=== PATIENT | female | born 1945 | race Caucasian/White ===

== ENCOUNTER 2017-05-25 15:01 | Outpatient (CLI) | payer MEDICARE ==
--- NOTE | 2017-05-25 16:57 | MMO ---
BILATERAL DIGITAL SCREENING MAMMOGRAMS: Date: 05/25/17 HISTORY: 71-year-old female presents for digital screening mammogram. COMPARISON: 11/12/15 and 10/03/04. FINDINGS: This patient's mammogram was interpreted with the assistance of computer-aided detection. Scattered fibroglandular changes are noted bilaterally. Stable typically benign calcification. IMPRESSION: BIRADS 2: Benign Finding(s) Continue routine screening. POS: FARZAD
== END 2017-05-25 15:02 | disposition home or self-care (01) ==
LOC: SCSMAMMO 15:01
PROVIDERS: ATTEND Family Medicine
DX: Z12.31 Encounter for screening mammogram for malignant neoplasm of breast (principal)
CPT/HCPCS: 77067; G0202

== ENCOUNTER 2018-06-20 09:47 | Outpatient (CLI) | payer MEDICARE ==
--- NOTE | 2018-06-20 13:35 | MMO ---
BILATERAL SCREENING MAMMOGRAM: Comparison: 05-25-17, 11-12-15 History: Annual screening exam. This study is interpreted with the assistance of computer aided detection. FINDINGS: Breasts are predominately fatty replaced. Benign calcifications are seen in both breasts. There is no dominant mass, suspicious calcification or other signs of malignancy. IMPRESSION: BIRADS category 2 - benign findings. POS: FARZAD
== END 2018-06-20 09:48 | disposition home or self-care (01) ==
LOC: SCSMAMMO 09:47
PROVIDERS: ATTEND Family Medicine
DX: Z12.31 Encounter for screening mammogram for malignant neoplasm of breast (principal)
CPT/HCPCS: 77067

== ENCOUNTER 2020-07-29 11:02 | Outpatient (CLI) | payer MEDICARE, OTHER ==
[2020-07-29] MEDS ORDERED: Iopamidol 370 76% 100 ML VIAL ONE (12:13)
--- NOTE | 2020-07-29 14:31 | CT ---
CTA NECK WITH CONTRAST: Axial tomograms obtained with multiplanar reconstruction an 3D postprocessing. INDICATION: Carotid stenosis. Carotid Doppler study 07/04/2020 demonstrated increased velocities in both proximal internal carotid arteries. FINDINGS: There is an atherosclerotic calcification at the aortic arch; however, no significant stenosis seen a t the origin of the arch vessels. Right Side: The right common carotid artery is patent and symmetric without stenosis. There is calcified plaque in the right bulb and proximal right ICA. Densely calcified plaque inhibits accurate measurements; however, the degree of stenosis appears to approach 50% diameter by NASCET cr iteria consistent with the velocity recordings. The right ICA above the bulb is patent and unremarkable. Left Side: The left common carotid artery is patent and unremarkable. Very dense calcified plaque in the left bulb and proximal left ICA which would inhibit velocity recor dings on ultrasound and also inhibits accurate measurement by CT. The degree of stenosis appears in t he 50-60% range by NASCET criteria which does correspond to the velocity recordings. A more accurate assessment could be performed with catheter angiogram with digital subtraction angiography. Left ICA above the bulb is unremarkable. Vertebral arteries appear patent and symmetric. Basilar artery is visualized and unremarkable. Review of lung garcia show diffuse ground-glass opacities in both visualized upper lobes. Correlate c linically regarding respiratory symptoms. Both lobes of thyroid are enlarged and very heterogeneous with multinodular appearance. The right lob e is particularly enlarged with substernal extension. The enlarged right lobe of thyroid measures up to 4.5 cm AP dimension. There is an exophytic low density mass from the more superior right lobe of t hyroid which measures 2.2 cm and abuts the vascular bundle on the right. Degenerative changes in the cervical spine are prominent at the C5-6 and C6-7 levels where spondylosi s produce cord and foraminal impingement. IMPRESSION: 1. Densely calcified plaque in both proximal ICAs inhibit accurate assessment; however, there does a ppear to be hemodynamically significant stenosis bilaterally, probably more severe on the left. Consi darshan catheter angiogram with digital subtraction angiography for more accurate luminal assessment. 2. Enlarged heterogeneous thyroid with large mass involving the right lobe of the thyroid extending substernally and another exophytic mass from the superior right thyroid extending laterally. Recommen d ENT consultation and dedicated thyroid ultrasound exam. 3. Ground-glass parenchymal opacities involving both upper lobes. Correlate clinically. POS: AGW
== END 2020-07-29 11:03 | disposition home or self-care (01) ==
LOC: BICCT 11:02
PROVIDERS: ATTEND Family Medicine
DX: I65.23 Occlusion and stenosis of bilateral carotid arteries (principal); E07.9 Disorder of thyroid, unspecified; R91.8 Other nonspecific abnormal finding of lung field
CPT/HCPCS: 70498; 82565; Q9967

== ENCOUNTER 2022-07-09 13:35 | Outpatient (CLI) | payer MEDICARE, OTHER | END 2022-07-09 13:36 | disposition home or self-care (01) | LOC: BICMAMMO 13:35 | PROVIDERS: ATTEND Specialist | DX: R59.0 Localized enlarged lymph nodes (principal) | CPT/HCPCS: 77066; G0279 ==

== ENCOUNTER 2022-07-24 13:55 | Outpatient (CLI) | payer MEDICARE, OTHER | END 2022-07-24 13:56 | disposition home or self-care (01) | LOC: LABBT 13:55 | PROVIDERS: ATTEND Specialist | DX: Z01.810 Encounter for preprocedural cardiovascular examination (principal); R59.0 Localized enlarged lymph nodes | CPT/HCPCS: 93005; 93010 ==

== ENCOUNTER → 2022-07-30 | Outpatient (CLI) | payer MEDICARE, OTHER | LOC: PET 12:30 | PROVIDERS: ATTEND Internal Medicine | DX: C85.10 Unspecified B-cell lymphoma, unspecified site (principal) | CPT/HCPCS: 78815; A9552 ==

== ENCOUNTER → 2022-09-30 | Outpatient (CLI) | payer MEDICARE, OTHER | LOC: PET 08:00 | PROVIDERS: ATTEND Internal Medicine | DX: C83.34 Diffuse large B-cell lymphoma, lymph nodes of axilla and upper limb (principal); R59.0 Localized enlarged lymph nodes | CPT/HCPCS: 78815; A9552 ==

== ENCOUNTER → 2024-06-27 | Outpatient (CLI) | payer MEDICARE, OTHER | LOC: RAD 15:00 | PROVIDERS: ATTEND Internal Medicine Critical Care Medicine | DX: R06.00 Dyspnea, unspecified (principal) | CPT/HCPCS: 71046 ==

== ENCOUNTER 2025-06-25 11:06 | Outpatient (CLI) | payer MEDICARE, OTHER | END 2025-06-25 11:07 | disposition home or self-care (01) | LOC: RAD 11:06 | PROVIDERS: ATTEND Internal Medicine Critical Care Medicine | DX: R06.00 Dyspnea, unspecified (principal) | CPT/HCPCS: 71046 ==